=== PATIENT | male | born 1945 | race Caucasian/White ===

== ENCOUNTER → 2016-06-27 | Outpatient (CLI) | payer MEDICARE, OTHER ==
[~2016-06-27] MED LIST: ACETAMINOPHEN650 M1 PO; ACYCLOVIR PO; ADVAIR 2501 DISK W/D PO; ALBUTEROL SULFAT8 MG PO; ALBUTEROL17 G1 IH; ALBUTEROL17 GM INH; ALER-CAP25 M1 PO; ALPRAZOLAM PO; ALPRAZOLAM0.5 MG PO; ANTIVERT PO; ASPIRIN81 M1 PO; ASPIRIN81 MG PO; ASPIRINEC PO; BENADRYL PO; BENTYL20 MG PO; CEFTIN PO; CIPRO PO; COREG3.125 MG PO; DUONEB 2.5-0.5 M3 ML NEB; DYAZIDE 37.5/251 CAP PO; FAMOTIDINE PO; FLAGYL PO; FLEXERIL10 MG PO; HCTZ PO; HYDROCODONE/APA1 T16 PO; IMODIUM A-D2 M1 PO; KEFLEX500 MG PO; KEPPRA500 MG PO; LEVAQUIN PO; LEVSIN0.125 M1 PO; LIPITOR PO; LOPRESSOR PO; LORATADINE PO; LORTAB 10-5001 EACH PO; LORTAB 101 TAB 10/5 PO; LORTAB 5/500 TA1 TA1 PO; MEDROL PO; METOPROLOL SUCC25 MG PO; METRONIDAZOLE PO; MILK OF MAGNESIA PO; MOTION SICKNESS25 M4 PO; NORCO 10/325 TA1 TAB PO; NOVOLOG100 U/ML SUBQ; ORUDIS75 M1 PO; PATIENT'S PHARMACY; PREDNISONE PO; PREDNISONE10 MG/DOSE PO; PRILOSEC PO; PROTONIX PO; ROCEPHIN1 G/VIAL IV; STERAPRED5 MG/DOSE1 PO; SYMBICORT INH; TRAMADOL HCL50 M1 PO; TRIAMTERENE-HCT1 TA6 PO; XANAX0.5 MG PO; ZITHROMAX PO; ZITHROMAX500 M1 IV; ZOCOR PO
--- NOTE | ~2016-06-27 | CT57 ---
[facility] A Service of [facility] & [facility] [place] RADIOLOGY TEXT RESULTS PATIENT: JULIAAN COURTNEY LOCATION: [facility] : 43 UNIT #: [id number] AGE: [address]: Edita Hsieh APRN SEX: M ORDER DR: [id number] [address] [address] [id number] MR#: [id number] Acc #: [id number] NAME: JULIANA COURTNEY : 1945 SEX: M STUDY DATE/TIME: 06/27/2016 10:54 UNIT: [facility] ROOM: STUDY DESCRIPTION: CT Chest Wo Cont Attending Physician: Edtia Hsieh A.P.R.N. Referring Physician: Edita Hsieh A.P.R.N. Ordering Physician: Edita Hsieh A.P.R.N. Primary Care Physician: Edita Hsieh A.P.R.N. MEDICAL IMAGING REPORT This report is preliminary unless electronic signature is present. EXAM CT chest without contrast 06/27/2016 HISTORY Right-side chest pain after falling 2 weeks ago. Caught self with right arm. Physician's history states pleural thickening on plain film. COMPARISON CT chest with contrast 12/01/2012. PA and lateral chest 06/25/2016. TECHNIQUE This CT examination was performed with one or more of the following radiation dose reduction techniques: automatic exposure control, adjustment of mA and/or kV according to patient size, and iterative reconstruction. PROCEDURE 5 mm noncontrast axial images through the chest. Sagittal and coronal reformatted images were obtained. FINDINGS Right basilar posterolateral pleural thickening measuring nearly 6 mm thickness is unchanged compared to 12/01/2012, in keeping with chronic benign finding such as chronic pleural scarring. More focal nodular scarring or atelectasis posteriorly within the right lower lobe is likewise stable to even slightly improved compared to 12/01/2012. There is also some prominence of the right chest wall fat just deep to the pleural margin, stable since prior. No new or suspicious pulmonary nodules are identified. [id number] generalized emphysematous changes are present. No acute appearing airspace disease. No pathologically enlarged mediastinal, hilar or axillary lymph nodes. Dense calcification is present within the left STS. [facility] A Service of [facility] RADIOLOGY TEXT RESULTS PATIENT: JULIANA COURTNEY LOCATION: [facility] : 43 UNIT #: [id number] AGE: [address]: Edita Hsieh APRN SEX: M ORDER DR: anterior descending coronary artery. There is borderline aneurysmal dilation of the mid descending thoracic aorta measuring up to 3.2 cm, not appreciably changed from 12/01/2012 where it measured 3.1 cm. Benign calcified granulomatous changes are present within the left hilum and left upper lobe. Tiny gallstone is present without pericholecystic inflammation or biliary ductal dilation. No acute or suspicious osseous abnormalities are identified. IMPRESSION 1. Chronic pleural parenchymal thickening and scarring in the posterolateral right base is unchanged when compared to 12/01/2012. No acute chest findings. This is thought to correspond to the questioned abnormality on the recent chest radiograph. 2. Moderate generalized emphysema. 3. 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 4. Dense left anterior descending coronary artery calcification. Please correlate with cardiac history. 5. Uncomplicated cholelithiasis. Dictated by... Jenny Vanegas M.D. THIS IS AN ELECTRONICALLY VERIFIED REPORT Jenny Vanegas M.D. at 06/28/2016 11:56 AM PARAM/penyn TD: 06/27/2016 14:14 JOB #: [id number] MEDICAL IMAGING REPORT
== END | disposition home or self-care (01) ==
LOC: SCT 10:30
DX: J92.9 Pleural plaque without asbestos (principal); J43.9 Emphysema, unspecified; J98.4 Other disorders of lung; I77.810 Thoracic aortic ectasia; I25.10 Atherosclerotic heart disease of native coronary artery without angina pectoris; K80.20 Calculus of gallbladder without cholecystitis without obstruction
CPT/HCPCS: 71250